=== PATIENT | female | born 1985 | race Caucasian/White ===

== ENCOUNTER 2017-05-16 15:51 | Emergency (ER) | payer MEDICAID, SELFPAY ==
[2017-05-16 15:52] VITALS: BP 139/96; PULSE 124; RESP 18; TEMP 36.8; O2SAT 98; BMI 26.8
--- NOTE | 2017-05-16 16:05 | EKG12_ITS ---
Test Reason : CHEST PAIN Blood Pressure : / mmHG Vent. Rate : 118 BPM Atrial Rate : 118 BPM P-R Int : 128 ms QRS Dur : 076 ms QT Int : 322 ms P-R-T Axes : 011 025 028 degrees QTc Int : 451 ms Sinus tachycardia Otherwise normal ECG Confirmed by ELEANOR MINOR, MEÑO ([id number]), subeditor WAYLON ROSAS ([id number]) on 05/18/2017 2:19:21 PM Referred By: Confirmed By:MEÑO WESBTER MD
[2017-05-16 16:26] LABS: Bacteria 0 SEEN /hpf (None Seen); Mucous, Urine 0 SEEN /hpf (<or=2+); Red Blood Cells-Urine 0 SEEN /hpf (0-5)
[2017-05-16 16:28] VITALS: O2SAT 97
--- NOTE | 2017-05-16 16:32 | CT_ITS ---
STUDY: CT ABDOMEN AND PELVIS WITHOUT CONTRAST REASON FOR EXAM: Female, 32 years old. Left flank pain. RADIATION DOSAGE (If Supplied By Facility): CTDIvol = ( 12.38 ) mGy, DLP = ( 557.57 ) mGycm TECHNIQUE: Transaxial images were obtained from the dome of the diaphragm to the symphysis pubis without oral contrast, and without intravenous contrast. Sagittal and coronal images were reconstructed. Individualized dose optimization techniques were used for this CT. COMPARISON: May 05, 2016. FINDINGS: The visualized lung bases are unremarkable. The visualized portions of the heart are within normal limits. Normal liver. There are surgical clips in the gallbladder fossa consistent with a prior cholecystectomy. There is mild splenomegaly. Normal pancreas. Normal bilateral adrenal glands. Normal right kidney. There is 0.3 cm stone at the lower pole of the left kidney. There is no hydronephrosis. Normal visualized stomach. Normal small intestine. Normal colon. The appendix is visualized and appears normal. Normal abdominal aorta. Normal inferior vena cava. Normal retroperitoneum. Normal urinary bladder. Normal visualized uterus. Adnexal follicles. Tubal ligation clips. There is no free fluid in the abdomen or pelvis. Normal abdominal wall. Normal osseous structures. CT/Abdomen/Pelvis without Cont IMPRESSION: Left renal stone. No hydronephrosis. Splenomegaly. Electronically Signed: Alfonso Gupta MD at 17:37 EST , Service support ,
[2017-05-16 16:35] LABS: Color, Urine Yellow (Yellow); Glucose, Dipstick Normal (Normal); Ketone-Dipstick Negative (Negative); Leukocyte Esterase-Dipstick 25 /ul (Negative); Nitrite-Dipstick Negative (Negative); Occult Blood-Urine Negative /ul (Negative); Protein-Dipstick Negative (Negative); Specific Gravity, Urine 1.015 (1.002-1.030); Urine Bilirubin Dipstick Negative (Negative); Urine Clarity Sl. Cloudy (Clear); Urine Urobilinogen Normal (Normal); Urine pH 6.5 (5.0 - 8.0)
[2017-05-16 16:36] LABS: Absolute Lymphocyte Count 0.96 X10^3/ul (0.83-4.51); Absolute Neutrophil Count 2.6 X10^3/uL (2.0-7.7); Basophil# 0.02 X10^3/uL; Basophil% 0.5 % (0-1); Eosinophil# 0.02 X10^3/uL; Eosinophils% 0.5 % (0-5); Hematocrit 39.8 % (37-47); Hemoglobin 13.2 g/dl (12.0-15.0); Lymphocyte # 0.96 X10^3/ul (4.0); Mean Corp Hgb Conc 33.2 g/gl (32-36); Mean Corpuscular Hgb 28.6 pg (27.0-32.0); Mean Corpuscular Volume 86.1 fL (81-99); Mean Platelet Vol. 10.3 fl (6.2-12.0); Monocyte# 0.73 X10^3/uL; Monocyte% 16.7 % (0-10); Neutrophil # 2.62 X10^3/uL (2.7-7.7); Neutrophil % 60.1 % (47-70); Platelet Count 212 K/mm3 (150-450); RBC Distribution Width CV 14.7 % (11.6-14.6); RBC Distribution Width SD 45.4 fl (35.1-43.9); Red Blood Count 4.62 M/mm3 (4.2-5.4); White Blood Count 4.4 K/mm3 (4.4-11.0)
[2017-05-16 16:37] LABS: POSITIVE COUNT NO; POSITIVE DIFFERENTIAL NO; POSITIVE MORPHOLOGY NO
[2017-05-16] MEDS: Ketorolac 30 MG/ML Syringe IV (16:41)
[2017-05-16] MEDS: 0.9% Normal Saline 1,000 ML 150 ML IV (16:41)
[2017-05-16 16:43] LABS: Squamous Epithelial Cells - UA 0-5 SEEN /hpf (5-10); White Blood Cells 5-10 SEEN /hpf (0-5)
[2017-05-16 16:50] LABS: Anion Gap 9 (5-15); BUN 5 mg/dL (7-18); BUN/Creat Ratio 6.4 RATIO (10-20); Calcium,Total 8.3 mg/dL (8.5-10.1); Chloride 107 mmol/L (98-107); Creatinine, Serum 0.78 mg/dL (0.55-1.02); EST Glomerular Filtration Rate 90 mL/min (>60); Est Glom Filt Rate - Afr Amer 109 mL/min (>60); Estimated Creatinine Clearance 88.59 ml/min; Glucose 102 mg/dL (74-106); Potassium 3.6 mmol/L (3.5-5.1); Sodium Level 142 mmol/L (136-145)
--- NOTE | 2017-05-16 17:03 | RAD_ITS ---
STUDY: X-RAY CHEST REASON FOR EXAM: Female, 32 years old. Cough. Fever. TECHNIQUE: Single AP portable view of the chest. COMPARISON: None. FINDINGS: There are monitoring devices. The lungs are clear and expanded. There is no demonstrated pleural abnormality. Normal size heart. Normal mediastinum and emre. Normal visualized pulmonary arteries. Normal visualized aortic arch and descending thoracic aorta. Normal visualized thoracic spine. Normal visualized ribs, clavicles, and shoulders. There is no demonstrated abnormality of the visualized soft tissue structures of the upper abdomen. RAD/Chest 1 View (Portable) IMPRESSION: Normal x-ray examination of the chest. Electronically Signed: Alfonso Gupta MD at 17:32 EST , Service support ,
--- NOTE | 2017-05-16 17:49 | ED.VISSUMM ---
- ER Visit Summary Date of Service: 05/16/17 Chief Complaint: [Flank pain] History of Present Illness: The patient is a 32 F [presents to the emergency department chief complaint of left flank pain that started 3 days ago. Patient denies dysuria or frequency. Patient states that she had a fever up to 102.1 yesterday. Patient also states that she feels like she might have bronchitis that she has had a cough that at times is been productive of some yellow sputum. Patient also describes some chest heaviness and pain in her chest with cough. Patient has a history of ulcerative colitis. Patient has had kidney stones in the past. Patient does not think that she is as she has had a tubal ligation] Physical Examination: [HEENT-PERRLA, EOMI. Cranial nerves II through XII grossly intact. TMs clear. Mucous membranes moist. No adenopathy. Cardiovascular-regular rate and rhythm without murmur or ectopy Lungs-clear to auscultation, chest wall stable without crepitus or subcu emphysema Abdomen-normoactive bowel sounds, has some mild tenderness over left lower quadrant with some guarding. Patient has CVA tenderness on the left. There is no rebound, rigidity, or perineal signs. Extremities-intact ?4, normal range of motion, normal pulses, atraumatic] Test Results: [CBC with differential obtained showed a white blood cell count 4.4, hemoglobin 13, hematocrit 40, platelets 212. Chemistries were unremarkable. Urinalysis showed 25 leukocyte esterase, 5-10 WBCs, 0 bacteria. Troponin was less than 0.02. EKG ordered by nursing staff on arrival showed a sinus tachycardia with rate of 118 bpm with no acute ST segment changes. Chest x-ray was normal. CT flank showed a left renal stone however no hydronephrosis patient also has some mild splenomegaly. Patient in normal colon.] Emergency Department Course and Treatment: [She was medicated with Toradol in the emergency department] Treatment Plan: [Patient advised to use Tylenol for discomfort and use some heat to the area. Patient also advised that she likely has a viral upper respiratory infection.] Disposition: [Discharged home in stable condition] Impression: [Left flank pain-etiology uncertain Viral URI] This note was generated with [employer] dictation software. It may contain incorrect words, spelling, and punctuation that were not noted in review of the chart prior to signing ED Disposition - Plan for ED Patient: Chief Complaint: Chest Pain Referrals: Ravindra Bean MD [Primary Care Provider] -
--- NOTE | 2017-05-16 17:53 | ED.DEP ---
ED Disposition - Plan for ED Patient: Chief Complaint: Chest Pain Instructions: ED Flank Pain Uncertain Cause, ED URI Viral Referrals: Ravindra Bean MD [Primary Care Provider] - 5-7 Days
[2017-05-16 18:02] VITALS: BP 122/84; PULSE 107; RESP 14; O2SAT 97
[2017-05-16 18:14] VITALS: BP 122/84; PULSE 107; RESP 17; O2SAT 97
--- NOTE | 2017-05-16 18:16 | ED.RN ---
REVIEWED D/C INSTRUCTIONS, FOLLOW UP CARE, AND S/S THAT WOULD WARRANT A RETURN TO THE ED WITH PT. PT VERBALIZED AN UNDERSTANDING AND DENIES FURTHER QUESTIONS FOR THIS RN. PT SKIN P/W/D, RESP EVEN AND UNLABORED, PT A&O X 3, NO DISTRESS NOTED. PT AMBULATED OUT OF ED, GAIT STEADY.
== END 2017-05-16 18:17 | disposition home or self-care (01) ==
PROVIDERS: Emergency Provider Emergency Medicine; Family Provider Family Medicine; PCP Family Medicine
DX: R10.9 Unspecified abdominal pain (principal); J06.9 Acute upper respiratory infection, unspecified; N20.0 Calculus of kidney; R16.1 Splenomegaly, not elsewhere classified; K51.90 Ulcerative colitis, unspecified, without complications; Z87.442 Personal history of urinary calculi; Z72.0 Tobacco use; Z79.899 Other long term (current) drug therapy
CPT/HCPCS: 71045; 74176; 80048; 81001; 84484; 85025; 93005; 96361; 96374; 99284; J7030; A4216

== ENCOUNTER 2017-07-12 19:40 | Emergency (ER) | payer MEDICAID, SELFPAY ==
[2017-07-12 19:41] VITALS: BP 156/95; PULSE 122; RESP 20; TEMP 36.1; O2SAT 95; BMI 26.2
--- NOTE | 2017-07-12 20:03 | ED.VISSUMM ---
- ER Visit Summary Date of Service: 07/12/17 Chief Complaint: [] Abdominal pain History of Present Illness: The patient is a 32 F [] patient reports a history of ulcerative colitis she has had abdominal pain for many months she has had prior evaluations by her physicians including colonoscopies she has been on sulfasalazine, prednisone and other medications she has had recent CAT scans that were unremarkable, she was told that she might require surgery to simply remove the part of the colon that continues to be inflamed despite these therapies she saw a surgeon recently who told her that would be an option they would be happy to pursue should she feel that is appropriate, she was also told she might require immune therapy with Humira, and so the issue now is whether she should start immunotherapy or have the surgery. She indicates the pain has persisted she is able to eat and drink her bowel habits have been diarrhea no blood no fever no cough, she presents because of the persistence of the pain and failure of outpatient therapy as above Physical Examination: [] No distress her vital signs are within normal range she complains of pain to the left side abdomen which is the usual location of her pain head neck chest unremarkable lungs clear heart tones normal the abdomen is soft she subjectively complains of vague pain to the left side abdomen that has no focal region there is no rebound guarding organomegaly I do not feel any fullness, she assures me she is not having any blood per rectum, her upper lower extremities are unremarkable her neurologic exam unremarkable Test Results: [] Emergency Department Course and Treatment: [] On conversation with her we reviewed her prior studies including a recent CAT scan in May that showed nothing acute all of the other prior workup she mentioned, we will start IV fluids pain management screening labs. she simply wants some relief of the pain, she is also scheduled to follow-up with her hollow ware maker Dr. Holloway soon for further management options White count is 17.6, because of that elevated white count which is a change from her baseline she was sent for repeat CT which showed nothing acute, she did recently complete prednisone and that is likely explaining the elevated white count, and the rest of her labs are unremarkable On reevaluation she continues to complain of some pain I explained her she received the maximum dose of morphine 8 mg she will receive additional 4 mg here, there is some notation in the medical record of history of prescription narcotic use or abuse syndrome, and as this is a chronic problem that she has had for many months, her physicians managing her condition do not have her on narcotics I have explained to visually nothing more that can be done from the emergency department she should contact us physicians for further management options and return for change in symptoms she understands Treatment Plan: [] Disposition: [] Home stable Impression: [] Acute recurrent abdominal pain reported history of ulcerative colitis This note was generated with [employer] dictation software. It may contain incorrect words, spelling, and punctuation that were not noted in review of the chart prior to signing ED Disposition - Plan for ED Patient: Chief Complaint: Abd Pain Referrals: Ravindra Bean MD [Primary Care Provider] -
--- NOTE | 2017-07-12 20:06 | ED.DCSUM_ITS ---
- ER Visit Summary Date of Service: 07/12/17 Chief Complaint: [] Abdominal pain History of Present Illness: The patient is a 32 F [] patient reports a history of ulcerative colitis she has had abdominal pain for many months she has had prior evaluations by her physicians including colonoscopies she has been on sulfasalazine, prednisone and other medications she has had recent CAT scans that were unremarkable, she was told that she might require surgery to simply remove the part of the colon that continues to be inflamed despite these therapies she saw a surgeon recently who told her that would be an option they would be happy to pursue should she feel that is appropriate, she was also told she might require immune therapy with Humira, and so the issue now is whether she should start immunotherapy or have the surgery. She indicates the pain has persisted she is able to eat and drink her bowel habits have been diarrhea no blood no fever no cough, she presents because of the persistence of the pain and failure of outpatient therapy as above Physical Examination: [] No distress her vital signs are within normal range she complains of pain to the left side abdomen which is the usual location of her pain head neck chest unremarkable lungs clear heart tones normal the abdomen is soft she subjectively complains of vague pain to the left side abdomen that has no focal region there is no rebound guarding organomegaly I do not feel any fullness, she assures me she is not having any blood per rectum, her upper lower extremities are unremarkable her neurologic exam unremarkable Test Results: [] Emergency Department Course and Treatment: [] On conversation with her we reviewed her prior studies including a recent CAT scan in May that showed nothing acute all of the other prior workup she mentioned, we will start IV fluids pain management screening labs. she simply wants some relief of the pain , she is also scheduled to follow-up with her goat herder Dr. Holloway soon for further management options White count is 17.6, because of that elevated white count which is a change from her baseline she was sent for repeat CT which showed nothing acute, she did recently complete prednisone and that is likely explaining the elevated white count, and the rest of her labs are unremarkable On reevaluation she continues to complain of some pain I explained her she received the maximum dose of morphine 8 mg she will receive additional 4 mg here , there is some notation in the medical record of history of prescription narcotic use or abuse syndrome, and as this is a chronic problem that she has had for many months, her physicians managing her condition do not have her on narcotics I have explained to visually nothing more that can be done from the emergency department she should contact us physicians for further management options and return for change in symptoms she understands Treatment Plan: [] Disposition: [] Home stable Impression: [] Acute recurrent abdominal pain reported history of ulcerative colitis This note was generated with [employer] dictation software. It may contain incorrect words, spelling, and punctuation that were not noted in review of the chart prior to signing ED Disposition - Plan for ED Patient: Chief Complaint: Abd Pain Referrals: Ravindra Bean MD [Primary Care Provider] -
[2017-07-12] MEDS: Ondansetron 4 MG/2 ML Vial IV (20:11)
[2017-07-12] MEDS: morphine 8 MG/ML Syringe IV (20:11)
[2017-07-12] MEDS: 0.9% Normal Saline 1,000 ML 1000 ML IV (20:11)
[2017-07-12 20:23] LABS: Bacteria 0 SEEN /hpf (None Seen); Mucous, Urine 0 SEEN /hpf (<or=2+); Red Blood Cells-Urine 0 SEEN /hpf (0-5); White Blood Cells 0 SEEN /hpf (0-5)
[2017-07-12 20:31] LABS: Absolute Lymphocyte Count 1.35 X10^3/ul (0.83-4.51); Absolute Neutrophil Count 15.3 X10^3/uL (2.0-7.7); Basophil# 0.01 X10^3/uL; Basophil% 0.1 % (0-1); Hematocrit 42.3 % (37-47); Hemoglobin 14.2 g/dl (12.0-15.0); Lymphocyte # 1.35 X10^3/ul (4.0); Lymphocyte % 7.8 % (19-41); Mean Corp Hgb Conc 33.6 g/gl (32-36); Mean Corpuscular Hgb 29.2 pg (27.0-32.0); Mean Platelet Vol. 10.4 fl (6.2-12.0); Monocyte# 0.61 X10^3/uL; Monocyte% 3.5 % (0-10); Neutrophil # 15.32 X10^3/uL (2.7-7.7); Neutrophil % 88.3 % (47-70); Platelet Count 340 K/mm3 (150-450); RBC Distribution Width CV 13.7 % (11.6-14.6); RBC Distribution Width SD 43.4 fl (35.1-43.9); Red Blood Count 4.86 M/mm3 (4.2-5.4); White Blood Count 17.4 K/mm3 (4.4-11.0)
[2017-07-12 20:32] LABS: POSITIVE COUNT NO; POSITIVE DIFFERENTIAL NO; POSITIVE MORPHOLOGY NO
[2017-07-12 20:33] VITALS: BP 141/92; PULSE 100; RESP 18; O2SAT 97
[2017-07-12 20:33] LABS: Color, Urine Yellow (Yellow); Glucose, Dipstick Normal (Normal); Ketone-Dipstick Negative (Negative); Leukocyte Esterase-Dipstick Negative /ul (Negative); Nitrite-Dipstick Negative (Negative); Occult Blood-Urine Negative /ul (Negative); Protein-Dipstick Negative (Negative); Specific Gravity, Urine 1.015 (1.002-1.030); Urine Bilirubin Dipstick Negative (Negative); Urine Clarity Clear (Clear); Urine Urobilinogen Normal (Normal)
[2017-07-12 20:44] LABS: Squamous Epithelial Cells - UA 0-5 SEEN /hpf (5-10)
[2017-07-12 20:50] LABS: AST(SGOT) 9 U/L (15-37); Alanine Aminotransfer ALT/SGPT 18 U/L (13-56); Alkaline Phosphatase 59 U/L (45-117); Anion Gap 9 (5-15); BUN 8 mg/dL (7-18); BUN/Creat Ratio 9.6 RATIO (10-20); Bilirubin, Direct 0.07 mg/dL (0.00-0.30); Calcium,Total 8.8 mg/dL (8.5-10.1); Chloride 107 mmol/L (98-107); Creatinine, Serum 0.84 mg/dL (0.55-1.02); EST Glomerular Filtration Rate 83 mL/min (>60); Est Glom Filt Rate - Afr Amer 101 mL/min (>60); Globulin 3.5 g/dL (2.2-4.2); Glucose 140 mg/dL (74-106); Lipase 115 U/L (73-393); Potassium 3.9 mmol/L (3.5-5.1); Protein, Total 7.5 g/dL (6.4-8.2); Sodium Level 139 mmol/L (136-145)
--- NOTE | 2017-07-12 20:51 | CT_ITS ---
STUDY: CT ABDOMEN AND PELVIS WITHOUT CONTRAST REASON FOR EXAM: Female, 32 years old. Abdominal pain. Elevated white blood count. Ulcerative colitis. RADIATION DOSAGE (If Supplied By Facility): CTDIvol = ( 6.83 ) mGy, DLP = ( 334.65 ) mGycm TECHNIQUE: Transaxial images were obtained from the dome of the diaphragm to the symphysis pubis without oral contrast, and without intravenous contrast. Sagittal and coronal images were reconstructed. Individualized dose optimization techniques were used for this CT. COMPARISON: Including May 16, 2017 and May 05, 2016 FINDINGS: The visualized lung bases are unremarkable. The visualized portions of the heart are within normal limits. Normal liver. There are surgical clips in the gallbladder fossa consistent with a prior cholecystectomy. Normal spleen. Normal pancreas. Normal bilateral adrenal glands. Normal right kidney. There is a 0.2 cm stone at the lower pole of the left kidney. No hydronephrosis. Normal visualized stomach. Normal small intestine. Normal colon. The appendix is visualized and appears normal. Normal abdominal aorta. Normal inferior vena cava. Normal retroperitoneum. Normal urinary bladder. Normal visualized uterus. There are tubal ligation clips. Normal abdominal wall. Normal osseous structures. CT/Abdomen/Pelvis without Cont IMPRESSION: Left renal stone. No hydronephrosis. No dilated loops of bowel. Electronically Signed: Alfonso Gupta MD at 21:49 EDT , Service support ,
[2017-07-12 20:56] LABS: Pregnancy, Serum, hCG Quali. NEGATIVE Negative (0-9 Nonpreg)
[2017-07-12 21:57] VITALS: BP 142/98; PULSE 93; RESP 16; O2SAT 96
--- NOTE | 2017-07-12 22:17 | ED.DEP ---
ED Disposition - Plan for ED Patient: Chief Complaint: Abd Pain Instructions: ED Flank Pain Uncertain Cause Referrals: Ravindra Bean MD [Primary Care Provider] -
--- NOTE | 2017-07-12 22:21 | ED.DEP ---
ED Disposition - Plan for ED Patient: Chief Complaint: Abd Pain Instructions: ED Flank Pain Uncertain Cause Prescriptions: Ondansetron [Zofran Odt] 4 mg PO Q8H PRN PRN #10 tab PRN Reason: Nausea Referrals: Ravindra Bean MD [Primary Care Provider] -
[2017-07-12] MEDS: morphine 8 MG/ML Syringe 6 MG IV (22:26)
[2017-07-12 22:48] VITALS: BP 157/93; PULSE 89; RESP 16; O2SAT 95
--- NOTE | 2017-07-12 22:50 | ED.RN ---
REVIEWED D/C INSTRUCTIONS, FOLLOW UP CARE, PRESCRIPTION, AND S/S THAT WOULD WARRANT A RETURN TO THE ED WITH PT. PT VERBALIZED AN UNDERSTANDING AND DENIES FURTHER QUESTIONS FOR THIS RN. PT SKIN P/W/D, RESP EVEN AND UNLABORED, PT A&O X 3, NO DISTRESS NOTED. PT AMBULATED OUT OF ED, GAIT STEADY.
== END 2017-07-12 22:52 | disposition home or self-care (01) ==
PROVIDERS: Emergency Provider Emergency Medicine; Family Provider Family Medicine; PCP Family Medicine
DX: R10.9 Unspecified abdominal pain (principal); K51.50 Left sided colitis without complications; Z79.899 Other long term (current) drug therapy
CPT/HCPCS: 74176; 80048; 80076; 81001; 83690; 84703; 85025; 96361; 96374; 96375; 96376; 99283; J7030; A4216; J2405

== ENCOUNTER → 2017-09-12 11:33 | Outpatient (CLI) | payer MEDICAID, SELFPAY ==
--- NOTE | 2017-09-12 11:33 | DT_ITS ---
This patient was seen during an EMR downtime September 10, 2017 - September 17, 2017. This patient may have a combination of paper and electronic documentation or all paper documentation. All documentation is viewable within the e-chart portion of [facility] for each patient visit.
[2017-09-16 15:47] LABS: Thyroid Stim Hormone (TSH) 2.17 uIU/mL (0.358-3.74)
== END ==
PROVIDERS: Family Provider Family Medicine; PCP Family Medicine; Visit Provider Family Medicine
DX: R63.5 Abnormal weight gain (principal)
CPT/HCPCS: 36415; 84443

== ENCOUNTER → 2017-09-21 08:23 | Outpatient (CLI) | payer MEDICAID, SELFPAY ==
[2017-09-26 09:23] LABS: HPV APTIMA, High Risk Negative (Negative)
== END ==
PROVIDERS: Family Provider Family Medicine; PCP Family Medicine; Visit Provider Nurse Practitioner Women's Health
DX: Z12.4 Encounter for screening for malignant neoplasm of cervix (principal)
CPT/HCPCS: 88175; G0145

== ENCOUNTER 2017-09-22 11:26 | Emergency (ER) | payer MEDICAID, SELFPAY ==
[2017-09-22 11:26] VITALS: BP 148/93; PULSE 100; RESP 18; TEMP 37; O2SAT 96; BMI 26.7
[2017-09-22] MEDS: Morphine 4 MG/ML Syringe IV (11:52)
[2017-09-22] MEDS: Ondansetron 4 MG/2 ML Vial IV (11:52)
[2017-09-22 12:18] LABS: ALB/GLOB Ratio 1.2 RATIO (0.9-2.4); AST(SGOT) 10 U/L (15-37); Absolute Lymphocyte Count 1.92 X10^3/ul (0.83-4.51); Absolute Neutrophil Count 6.4 X10^3/uL (2.0-7.7); Alanine Aminotransfer ALT/SGPT 16 U/L (13-56); Albumin, Serum 4.1 g/dL (3.2-5.0); Alkaline Phosphatase 62 U/L (45-117); Anion Gap 6 (5-15); BUN 11 mg/dL (7-18); BUN/Creat Ratio 11.2 RATIO (10-20); Basophil# 0.05 X10^3/uL; Basophil% 0.5 % (0-1); Calcium,Total 8.9 mg/dL (8.5-10.1); Chloride 108 mmol/L (98-107); Creatinine, Serum 0.99 mg/dL (0.55-1.02); EST Glomerular Filtration Rate 69 mL/min (>60); Eosinophils% 4.3 % (0-5); Est Glom Filt Rate - Afr Amer 83 mL/min (>60); Estimated Creatinine Clearance 69.79 ml/min; Globulin 3.5 g/dL (2.2-4.2); Glucose 93 mg/dL (74-106); Hematocrit 39.3 % (37-47); Hemoglobin 13.6 g/dl (12.0-15.0); Lipase 76 U/L (73-393); Lymphocyte # 1.92 X10^3/ul (4.0); Lymphocyte % 20.8 % (19-41); Mean Corp Hgb Conc 34.6 g/gl (32-36); Mean Corpuscular Hgb 29.5 pg (27.0-32.0); Mean Corpuscular Volume 85.2 fL (81-99); Mean Platelet Vol. 10.8 fl (6.2-12.0); Monocyte# 0.49 X10^3/uL; Monocyte% 5.3 % (0-10); Neutrophil # 6.38 X10^3/uL (2.7-7.7); Platelet Count 332 K/mm3 (150-450); Potassium 3.6 mmol/L (3.5-5.1); Protein, Total 7.6 g/dL (6.4-8.2); RBC Distribution Width CV 12.5 % (11.6-14.6); Red Blood Count 4.61 M/mm3 (4.2-5.4); Sodium Level 137 mmol/L (136-145); White Blood Count 9.3 K/mm3 (4.4-11.0)
[2017-09-22 12:20] LABS: POSITIVE COUNT NO; POSITIVE DIFFERENTIAL NO; POSITIVE MORPHOLOGY NO
--- NOTE | 2017-09-22 12:38 | ED.DCSUM_ITS ---
- ER Visit Summary Date of Service: 09/22/17 Chief Complaint: Abdominal pain History of Present Illness: The patient is a 32 F who presents with abdominal pain. Been ongoing for the last 3 days. She describes sharp pains in her epigastric and left lower quadrant. She has had associated nausea with vomiting. She also admits to diarrhea. She has had no urinary symptoms. She was started on amoxicillin 3 days ago for sinus infection. She has a history of ulcerative colitis and is on sulfasalazine. She tried Tylenol and Excedrin without any relief. Physical Examination: Vital signs reviewed. HEENT exam unremarkable. Heart is regular rate and rhythm without murmurs. Lungs are clear to auscultation. Abdomen is soft diffuse tenderness to palpation. Extremities reveal no edema. Skin exam normal. Neurologic exam normal. Test Results: Labs are normal except for chloride of 108 Emergency Department Course and Treatment: Patient received morphine and Zofran. Her pain is improved. I will give her naproxen, Zofran ODT and put her on a course of steroids at home for a flare of ulcerative colitis. She will need to follow-up with her PCP Treatment Plan: [] Disposition: Discharge Impression: Dominant pain, ulcerative colitis flare This note was generated with [employer] dictation software. It may contain incorrect words, spelling, and punctuation that were not noted in review of the chart prior to signing ED Disposition - Plan for ED Patient: Chief Complaint: Abd Pain Referrals: Ravindra Bean MD [Primary Care Provider] -
--- NOTE | 2017-09-22 12:38 | ED.DEP ---
ED Disposition - Plan for ED Patient: Disposition: Home or Assisted Living Chief Complaint: Abd Pain Diagnosis: Ulcerative colitis Prescriptions: Ondansetron [Zofran Odt] 4 mg PO Q8H PRN PRN #10 tab PRN Reason: Nausea Naproxen [Naprosyn] 500 mg PO BID PRN #20 tab Prednisone [Deltasone] 40 mg PO DAILY #10 tab Referrals: Ravindra Bean MD [Primary Care Provider] -
[2017-09-22 12:44] VITALS: BP 130/81; PULSE 76; RESP 16
== END 2017-09-22 12:44 | disposition home or self-care (01) ==
PROVIDERS: Emergency Provider Emergency Medicine; Family Provider Family Medicine; PCP Family Medicine
DX: K51.90 Ulcerative colitis, unspecified, without complications (principal); R10.84 Generalized abdominal pain; J32.9 Chronic sinusitis, unspecified; Z79.2 Long term (current) use of antibiotics; Z79.899 Other long term (current) drug therapy; Z72.0 Tobacco use
CPT/HCPCS: 80053; 83690; 85025; 96374; 96375; 99283; A4216; J2405

== ENCOUNTER 2017-11-04 13:24 | Emergency (ER) | payer MEDICAID, SELFPAY ==
[2017-11-04 13:24] VITALS: BP 147/97; PULSE 104; RESP 18; TEMP 36.7; O2SAT 99; BMI 26.6
--- NOTE | 2017-11-04 13:52 | ED.VISSUMM ---
- ER Visit Summary Date of Service: 11/04/17 Chief Complaint: Abdominal pain nausea vomiting diarrhea History of Present Illness: The patient is a 32 F with history of ulcerative colitis presents with the above complaints. This started 3 days ago. She is not on steroids or immunomodulating agents. She has an appointment with her GI doctor in 4 days. No fever chills no dysuria no flank pain. Most of her pain is in the left lower quadrant. Physical Examination: Not appear in acute distress. Moist mucous membranes, no obvious facial deformity No C-spine tenderness supple neck. Regular rate and rhythm without any obvious murmurs Clear lungs bilaterally speaking in full sentences without any obvious respiratory distress Abdomen soft with diffuse tenderness but mostly in the left lower quadrant, no guarding or rebound Moves all extremities without any difficulty or pain. Skin does not show any obvious rashes or lesions, no trauma. Alert oriented ?3 with no gross focal deficit Emergency Department Course and Treatment: Patient had an unremarkable workup. I will treat her with steroids, she has been on these in the past. She has an appointment with her GI doctor in 5 days. She is told to continue this. If she worsen she needs to return and she understands this. Impression: Ulcerative colitis flare This note was generated with [employer] dictation software. It may contain incorrect words, spelling, and punctuation that were not noted in review of the chart prior to signing ED Disposition - Plan for ED Patient: Disposition: Home or Assisted Living Chief Complaint: Abd Pain Instructions: ED Colitis Ulcerative Prescriptions: Prednisone 60 mg PO DAILY #12 tab Referrals: Ravindra Bean MD [Primary Care Provider] - 2 Days
[2017-11-04 13:53] VITALS: BP 144/93; PULSE 90; RESP 16; O2SAT 100
[2017-11-04] MEDS: Ondansetron 4 MG/2 ML Vial IV (13:59)
[2017-11-04] MEDS: Morphine 4 MG/ML Syringe IV (13:59)
[2017-11-04] MEDS: 0.9% Normal Saline 1,000 ML 1000 ML IV (13:59)
[2017-11-04 14:17] LABS: Absolute Lymphocyte Count 2.15 X10^3/ul (0.83-4.51); Basophil# 0.03 X10^3/uL; Basophil% 0.4 % (0-1); Eosinophil# 0.36 X10^3/uL; Eosinophils% 4.6 % (0-5); Hematocrit 40.2 % (37-47); Hemoglobin 13.5 g/dl (12.0-15.0); Lymphocyte # 2.15 X10^3/ul (4.0); Lymphocyte % 27.2 % (19-41); Mean Corp Hgb Conc 33.6 g/gl (32-36); Mean Corpuscular Volume 86.5 fL (81-99); Mean Platelet Vol. 10.7 fl (6.2-12.0); Monocyte# 0.41 X10^3/uL; Monocyte% 5.2 % (0-10); Neutrophil # 4.95 X10^3/uL (2.7-7.7); Neutrophil % 62.5 % (47-70); Platelet Count 276 K/mm3 (150-450); RBC Distribution Width SD 40.8 fl (35.1-43.9); Red Blood Count 4.65 M/mm3 (4.2-5.4); White Blood Count 7.9 K/mm3 (4.4-11.0)
[2017-11-04 14:18] LABS: POSITIVE COUNT NO; POSITIVE DIFFERENTIAL NO; POSITIVE MORPHOLOGY NO
[2017-11-04 14:31] LABS: ALB/GLOB Ratio 1.1 RATIO (0.9-2.4); AST(SGOT) 23 U/L (15-37); Alanine Aminotransfer ALT/SGPT 17 U/L (13-56); Albumin, Serum 3.9 g/dL (3.2-5.0); Alkaline Phosphatase 56 U/L (45-117); Anion Gap 6 (5-15); BUN 9 mg/dL (7-18); BUN/Creat Ratio 9.7 RATIO (10-20); Calcium,Total 9.2 mg/dL (8.5-10.1); Chloride 109 mmol/L (98-107); Creatinine, Serum 0.93 mg/dL (0.55-1.02); EST Glomerular Filtration Rate 74 mL/min (>60); Est Glom Filt Rate - Afr Amer 89 mL/min (>60); Globulin 3.7 g/dL (2.2-4.2); Glucose 90 mg/dL (74-106); Potassium 4.5 mmol/L (3.5-5.1); Protein, Total 7.6 g/dL (6.4-8.2); Sodium Level 139 mmol/L (136-145)
[2017-11-04] MEDS: predniSONE 20 MG Tablet 60 MG PO (15:25)
[2017-11-04 15:27] VITALS: BP 146/92; PULSE 87; RESP 16; O2SAT 100
== END 2017-11-04 15:30 | disposition home or self-care (01) ==
PROVIDERS: Emergency Provider Emergency Medicine; Family Provider Family Medicine; PCP Family Medicine
DX: K51.50 Left sided colitis without complications (principal); Z72.0 Tobacco use; Z79.2 Long term (current) use of antibiotics; Z79.899 Other long term (current) drug therapy
CPT/HCPCS: 80053; 85025; 96361; 96374; 96375; 99284; J7030; A4216; J2405

== ENCOUNTER 2018-09-10 13:06 | Emergency (ER) | payer MEDICAID, SELFPAY ==
[2018-04-11 16:56] VITALS: BMI 26.8
[2018-09-10 13:07] VITALS: BP 139/85; PULSE 104; RESP 16; TEMP 36.7; O2SAT 95; BMI 21.9
--- NOTE | 2018-09-10 13:33 | ED.RN ---
PT DENIES WANTING TO END HER LIFE OR TO COMMIT SUICIDE, PT REPORTED THE MENTAL PAIN IS TOO MUCH PT WANTS TO RELEASE THE MENTAL ANGUISH BY CUTTING.
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
[2018-09-10 14:08] LABS: Absolute Lymphocyte Count 1.99 X10^3/ul (0.83-4.51); Absolute Neutrophil Count 5.6 X10^3/uL (2.0-7.7); Basophil# 0.02 X10^3/uL; Basophil% 0.2 % (0-1); Eosinophil# 0.05 X10^3/uL; Eosinophils% 0.6 % (0-5); Hematocrit 36.5 % (37-47); Hemoglobin 12.7 g/dl (12.0-15.0); Lymphocyte # 1.99 X10^3/ul (4.0); Lymphocyte % 24.8 % (19-41); Mean Corp Hgb Conc 34.8 g/gl (32-36); Mean Corpuscular Volume 77.5 fL (81-99); Mean Platelet Vol. 9.8 fl (6.2-12.0); Monocyte# 0.36 X10^3/uL; Monocyte% 4.5 % (0-10); Neutrophil # 5.58 X10^3/uL (2.7-7.7); Neutrophil % 69.8 % (47-70); Platelet Count 388 K/mm3 (150-450); RBC Distribution Width CV 14.3 % (11.6-14.6); RBC Distribution Width SD 40.5 fl (35.1-43.9); Red Blood Count 4.71 M/mm3 (4.2-5.4)
[2018-09-10 14:09] LABS: POSITIVE COUNT NO; POSITIVE DIFFERENTIAL NO; POSITIVE MORPHOLOGY NO
[2018-09-10 14:17] LABS: Anion Gap 8 (5-15); BUN 8 mg/dL (7-18); BUN/Creat Ratio 8.8 RATIO (10-20); Calcium,Total 8.9 mg/dL (8.5-10.1); Chloride 106 mmol/L (98-107); Creatinine, Serum 0.91 mg/dL (0.55-1.02); EST Glomerular Filtration Rate 75 mL/min (>60); Est Glom Filt Rate - Afr Amer 91 mL/min (>60); Estimated Creatinine Clearance 75.22 ml/min; Glucose 106 mg/dL (74-106); Potassium 3.5 mmol/L (3.5-5.1); Sodium Level 139 mmol/L (136-145)
[2018-09-10 14:37] LABS: Internal QC Validated? YES +Cl - CLEAR BKGD; Pregnancy, Serum, hCG Quali. NEGATIVE Negative
[2018-09-10 14:42] LABS: Alcohol, Blood (Medical)-Serum < 3.0 mg/dL
[2018-09-10 14:47] LABS: Amphetamine Urine VISTA POSITIVE (<1000 ng/mL); Barbiturate Urine VISTA NEGATIVE (< 200 ng/mL); Benzodiazepine Urine VISTA NEGATIVE (< 200 ng/mL); Cocaine Urine VISTA NEGATIVE (< 300 ng/mL); Ecstacy Urine VISTA POSITIVE (< 500 ng/mL); Methadone Urine VISTA NEGATIVE (< 300 ng/mL); PCP Urine VISTA NEGATIVE (< 25 ng/mL); THC Urine VISTA NEGATIVE (< 50 ng/mL); Vista UDS pH Range 6
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
--- NOTE | 2018-09-10 16:18 | ED.DEP ---
ED Disposition - Plan for ED Patient: Instructions: ED Contract, No Harm, ED Depression, ED Laceration Small Superf No Sutr Referrals: Care Physician,No Primary [Primary Care Provider] - Ravindra Bean MD [STAFF PHYSICIAN] - 5-7 Days
[2018-09-10 17:21] VITALS: BP 137/81; PULSE 78; RESP 19; O2SAT 99
== END 2018-09-10 17:29 | disposition home or self-care (01) ==
LOC: ED 14:36
PROVIDERS: Emergency Provider Emergency Medicine
DX: S41.012A Laceration without foreign body of left shoulder, initial encounter (principal); S41.011A Laceration without foreign body of right shoulder, initial encounter; S71.112A Laceration without foreign body, left thigh, initial encounter; S71.111A Laceration without foreign body, right thigh, initial encounter; F32.9 Major depressive disorder, single episode, unspecified; Z72.0 Tobacco use; X78.8XXA Intentional self-harm by other sharp object, initial encounter; Y93.89 Activity, other specified; Y92.002 Bathroom of unspecified non-institutional (private) residence as the place of occurrence of the external cause; Y99.8 Other external cause status
CPT/HCPCS: 80048; 80307; 80320; 84703; 85025; 99283; G0480

== ENCOUNTER 2018-09-30 23:52 | Emergency (ER) | payer MEDICAID, SELFPAY ==
[2018-09-30 23:53] VITALS: BP 144/97; PULSE 104; RESP 19; TEMP 36.7; O2SAT 97; BMI 23.6
--- NOTE | 2018-10-01 00:41 | ED.DCSUM_ITS ---
History of Present Illness Chief Complaint: Mental Health Informant: Patient, Significant Other Narrative: Patient stated that she would like to go home. She stated that she has had difficulty with depression in the past. She was seen 3 weeks ago. She does do superficial self cutting and at that time she had done some superficial self cutting. She was discharged home to follow-up with the counseling center for which she is done. She has not cut herself since. She stated she is having a lot of stress at home. Her significant other stated that she is been having auditory hallucinations. Patient denies this however. The patient initially told her significant other that the will be a better place without her. She stated she does not want to commit suicide however. She does not have any active suicidal thoughts now. She stated that he took her up to [facility] but she decided not to be seen and was brought here. She states she does not want to be here and would like to go home. She is adamant that she does not want to hurt her self. She would like to follow-up with counseling center tomorrow. - Past Medical History (1) Depression (emotion) Status: Acute (2) Ulcerative colitis Status: Acute Past Medical History - Allergies and Home Meds Allergies/Adverse Reactions: Allergies brompheniramine maleate [From Dimetapp (brompheniramine-PPA)] Allergy (Verified 09/30/18 23:59) Hives/hyperactivity escitalopram oxalate [From Lexapro] Allergy (Verified 09/30/18 23:59) Hives ketorolac tromethamine [From Toradol] Allergy (Verified 09/30/18 23:59) Hives/vomiting nalbuphine HCl [From Nubain] Allergy (Verified 09/30/18 23:59) Vomiting/hives paroxetine HCl [From Paxil] Allergy (Verified 09/30/18 23:59) Hives phenylpropanolamine HCl [From Dimetapp (brompheniramine-PPA)] Allergy (Verified 09/30/18 23:59) Hives SLEEP AIDS Allergy (Uncoded 09/30/18 23:59) Hives/hyperactivity/lockjaw Primary Care Physician: Care Physician,No Primary [Primary Care Provider] - Prior records reviewed: Yes Surgical History: no surgical history, - - History of tonsillectomy cholecystectomy Smoking Status: Current every day smoker Alcohol: None Drugs: None Review of Systems General: Denies: Chills, Fever, Sweats Eyes: Denies: Visual changes - bilaterally, Diplopia ENT: Denies: Rhinorrhea, Sore throat Cardiovascular: Denies: Chest pain, Palpitations Respiratory: Denies: Dyspnea, Cough, Dyspnea on exertion Gastrointestinal: Denies: Abdominal pain, Nausea, Vomiting, Diarrhea, Melena, Hematochezia Genitourinary: Denies: Dysuria, Hematuria, Frequency Musculoskeletal: Denies: Back pain, Extremity Pain Skin: Denies: Rash, Wounds Neurological: Denies: Headache, Weakness, Numbness Psych: Reports: Depression. Denies: Suicidal thoughts, Suicidal ideations Physical Exam Vital Signs/Narrative: Vital Signs Temp Pulse Resp BP Pulse Ox 09/30/18 23:53 98.1 F 104 H 19 H 144/97 H 97 General: Well nourished, Well developed, No Acute Distress Head: Normocephalic, Atraumatic Eyes: Perrl, EOMI ENT: Moist mucous membranes, No rhinorrhea Neck: Supple, Nontender Cardiovascular: Regular rate, Regular rhythm, No murmurs Respiratory: No distress, CTA bilaterally, Chest nontender Abdomen: Soft, Nontender, Nondistended, Normal bowel sounds Back: Nontender, Normal Inspection Extremities: Nontender, No edema Skin: Normal color, No rash Neurological: Alert, Oriented x3, Cranial nerves II-XII grossly intact, Normal Strength, Normal Sensation Psychological: Normal affect, Normal Mood Diagnostic/Tx/Re-eval - Medical Decision Making I discussed with the patient. She is not intoxicated. She appears to be making sense. She is not suicidal or homicidal. Her significant other would like her evaluated but she does not want evaluated. I stated that at this time I cannot force her to be evaluated. She is not having any thoughts of harming herself currently. She understands that she cannot tell him that the world would be a better place without him. She is can follow-up with the counseling center tomorrow. ED Disposition - Plan for ED Patient: Disposition: Home or Assisted Living Instructions: Depression Referrals: Care Physician,No Primary [Primary Care Provider] - Counseling,Center [GROUP OF PHYSICIANS] -
[2018-10-01 00:59] VITALS: BP 142/104; PULSE 116; RESP 18; O2SAT 97
== END 2018-10-01 01:01 | disposition home or self-care (01) ==
PROVIDERS: Emergency Provider Emergency Medicine
DX: F32.9 Major depressive disorder, single episode, unspecified (principal); F17.200 Nicotine dependence, unspecified, uncomplicated; Z79.899 Other long term (current) drug therapy
CPT/HCPCS: 99283

== ENCOUNTER 2021-02-08 17:58 | Emergency (ER) | payer MEDICAID, SELFPAY ==
[2021-02-08 17:58] VITALS: BP 143/79; PULSE 98; RESP 16; TEMP 36.6; O2SAT 100; BMI 23.0
--- NOTE | 2021-02-08 18:50 | EKG12_ITS ---
Test Reason : MENTAL HEALTH Blood Pressure : / mmHG Vent. Rate : 075 BPM Atrial Rate : 075 BPM P-R Int : 120 ms QRS Dur : 078 ms QT Int : 386 ms P-R-T Axes : 022 044 043 degrees QTc Int : 431 ms Normal sinus rhythm Normal ECG Confirmed by ELEANOR MINOR, MEÑO ([id number]), marketing editor LEE GIBSON ([id number]) on 02/10/2021 8:53:23 AM Referred By: TAYLOR Confirmed By:MEÑO WEBSTER MD
--- NOTE | 2021-02-08 18:50 | EX.ED.VIS.PS ---
HPI HPI - Psych History of Present Illness Chief Complaint: Mental Health Informant: patient Narrative Narrative: Patient wants to stop the voices. She has been hearing these for a long time. They do not tell her to hurt herself or others. However, it sounds like they are getting more annoying. She is starting to feel as though many people she needs are lying to her and trying to manipulate her. It is hard for her to be specific on this though. She does appear as though she is getting a little bit paranoid. However she has insight enough that she wants help. She does have history of drug use but says she has not used for a long time. She is currently homeless. She denies ever being on medications or ever being admitted for psychiatric reasons. PFSH PFS Medical History Anxiety Depression SVT (supraventricular tachycardia) Allergy/AdvReac Type Severity Reaction Status Date / Time brompheniramine maleate Allergy Hives/hyper Verified 02/08/21 18:01 [From Dimetapp activity (brompheniramine-PPA)] escitalopram oxalate Allergy Hives Verified 02/08/21 18:01 [From Lexapro] ketorolac tromethamine Allergy Hives/vomit Verified 02/08/21 18:01 [From Toradol] ing nalbuphine HCl [From Nubain] Allergy Vomiting/hi Verified 02/08/21 18:01 ves paroxetine HCl [From Paxil] Allergy Hives Verified 02/08/21 18:01 phenylpropanolamine HCl Allergy Hives Verified 02/08/21 18:01 [From Dimetapp (brompheniramine-PPA)] SLEEP AIDS Allergy Hives/hyper Uncoded 02/08/21 18:01 activity/lo ckjaw Family History Mother Hypertension Thyroid disorder Cancer multiple myeloma Father Heart disease Thyroid disorder Hypertension Surgical History delivery delivered H/O dilation and curettage H/O tubal ligation History of tonsillectomy and adenoidectomy Hx of cholecystectomy Social History Smoking Status: Current every day smoker tobacco type: cigarettes alcohol intake: never substance use type: does not use caffeine: Yes what type of physical activity do you participate in: walking seatbelt use: always do you feel safe at home: Yes additional social history: single- unemployed ROS ROS ED Constitutional Constitutional ED: Denies fever(s), subjective or sweats ENT ENT ED: Denies rhinorrhea or sore throat Cardiovascular Cardiovascular: Denies chest pain or palpitations Respiratory/Chest Respiratory/Chest: Denies cough or dyspnea Gastrointestinal Gastrointestinal: Denies nausea or vomiting Genitourinary Genitourinary ED: Denies dysuria Musculoskeletal Musculoskeletal: Denies myalgias Integumentary Reports rash and other Details: Skin changes on both feet after getting wet. She states they itch and hurt. They also have a strong odor. Neurologic Neurologic: Denies headache(s) Psychiatric Psychiatric: Reports other Details: See history of present illness. Endocrine Endocrinology: Denies polydipsia or polyuria Hematologic/Lymphatic Hematologic/Lymphatic: Denies easy bleeding or easy bruising EXAM Physical Exam Const Vital Signs: 02/08/21 17:58 02/08/21 22:29 Temperature 97.9 F Temperature Source Temporal Pulse Rate 98 77 Respiratory Rate 16 16 Blood Pressure 143/79 H 134/86 H Blood Pressure Mean 100 102 Pulse Ox 100 99 Oxygen Delivery Method Room Air Room Air Positive well nourished and well developed General Appearance ED: well developed and NAD HEENT normocephalic and atraumatic Eyes General Eye ED: Negative for pale conjunctiva or scleral icterus Neck no JVD Resp normal respiratory effort and clear to auscultation bilaterally Auscultation: Negative for rales, rhonchi or wheezes Cardio Rate: regular rate Rhythm: regular rhythm GI non-tender and non-distended Palpation: soft Back/Spine no CVA tenderness Neuro oriented x3 Sensorium / Orientation: alert Psych Psych Narrative: Awake alert and appropriate. She makes good eye contact. There is very subtle paranoia but is not significant. She appears to be taking care of herself. She is cooperative. She is consistent in her story. She is not suicidal or homicidal. Skin Skin Narrative: Patient does have a little bit of skin fissuring and odor in the crevices of toes mostly on the left foot. This is consistent with athlete's foot. MDM MDM MDM Narrative Medical decision making narrative: Patient CBC and electrolytes show no marked abnormalities. Drug screen is positive for amphetamines. She now admits to using amphetamines within the past week. is negative. Alcohol is only 4. Other people evidently contacted. Patient has been getting a bit more paranoid. She has made comments about cutting the next of people although she did not tell me this directly. I am concerned about her overall behavior. She is hearing voices with paranoia. It sounds like it is worsening. This could put her others at risk and I think she could benefit from treatment. She has been accepted in transfer. Lab Data Attestation: I reviewed the patient's lab results. Labs: Laboratory Results - last 24 hr 02/08/21 02/08/21 02/08/21 18:43 19:05 19:05 WBC 7.2 RBC 4.63 Hgb 13.6 Hct 41.7 MCV 90.1 MCH 29.4 MCHC 32.6 RDW Std Deviation 43.8 RDW Coeff of Nae 13.2 Plt Count 342 MPV 10.2 Immature Gran % (Auto) 0.100 Neut % (Auto) 58.2 Lymph % (Auto) 31.1 [place] % (Auto) 6.0 Eos % (Auto) 3.9 Baso % (Auto) 0.7 Absolute Neuts (auto) 4.2 Absolute Lymphs (auto) 2.23 Nucleated RBC % 0 Sodium 139 Potassium 4.0 Chloride 108 H Carbon Dioxide 29.0 Anion Gap 2 L BUN 6 L Creatinine 0.76 Estim Creat Clear Calc 84.65 Est GFR (MDRD) Af Amer 111 Est GFR (MDRD) Non-Af 91 BUN/Creatinine Ratio 7.9 L Glucose 111 H Calcium 8.9 Serum , Qual Urine Opiates Screen NEGATIVE Urine Methadone Screen NEGATIVE Ur Barbiturates Screen NEGATIVE Ur Phencyclidine Scrn NEGATIVE Ur Amphetamines Screen POSITIVE H U Methamphetamin-MDMA NEGATIVE U Benzodiazepines Scrn NEGATIVE Urine Cocaine Screen NEGATIVE U Cannabinoids Screen NEGATIVE Ur Drug Screen Comment Ethyl Alcohol 02/08/21 02/08/21 19:05 19:05 WBC RBC Hgb Hct MCV MCH MCHC RDW Std Deviation RDW Coeff of Nae Plt Count MPV Immature Gran % (Auto) Neut % (Auto) Lymph % (Auto) [place] % (Auto) Eos % (Auto) Baso % (Auto) Absolute Neuts (auto) Absolute Lymphs (auto) Nucleated RBC % Sodium Potassium Chloride Carbon Dioxide Anion Gap BUN Creatinine Estim Creat Clear Calc Est GFR (MDRD) Af Amer Est GFR (MDRD) Non-Af BUN/Creatinine Ratio Glucose Calcium Serum , Qual NEGATIVE Urine Opiates Screen Urine Methadone Screen Ur Barbiturates Screen Ur Phencyclidine Scrn Ur Amphetamines Screen U Methamphetamin-MDMA U Benzodiazepines Scrn Urine Cocaine Screen U Cannabinoids Screen Ur Drug Screen Comment Ethyl Alcohol 4.0 Discharge Plan Triage Chief Complaint: Mental Health ED Provider: Colby James Dx/Rx/DC Orders Clinical Impression: Hallucinations Primary Care Provider: Care Physician,No Primary Referrals: Care Physician,No Primary [Primary Care Provider] - Disposition Disposition: Psychiatric Hospital or Unit
[2021-02-08 19:20] LABS: Absolute Lymphocyte Count 2.23 X10^3/uL (0.83-4.51); Absolute Neutrophil Count 4.2 X10^3/uL (2.0-7.7); Basophil# 0.05 X10^3/uL; Basophil% 0.7 % (0-1); Eosinophil# 0.28 X10^3/uL; Eosinophils% 3.9 % (0-5); Hematocrit 41.7 % (37-47); Hemoglobin 13.6 g/dL (12.0-15.0); Lymphocyte # 2.23 X10^3/ul (0.83-4.51); Lymphocyte % 31.1 % (19-41); Mean Corp Hgb Conc 32.6 g/dL (32-36); Mean Corpuscular Hgb 29.4 pg (27.0-32.0); Mean Corpuscular Volume 90.1 fL (81-99); Mean Platelet Vol. 10.2 fl (6.2-12.0); Monocyte# 0.43 X10^3/uL; NRBC Flagged by Analyzer 0 % (0-5); Neutrophil # 4.18 X10^3/uL (2.7-7.7); Neutrophil % 58.2 % (47-70); Platelet Count 342 K/mm3 (150-450); RBC Distribution Width CV 13.2 % (11.6-14.6); RBC Distribution Width SD 43.8 fl (35.1-43.9); Red Blood Count 4.63 M/mm3 (4.2-5.4); White Blood Count 7.2 K/mm3 (4.4-11.0)
[2021-02-08 19:32] LABS: Anion Gap 2 (5-15); BUN 6 mg/dL (7-18); BUN/Creat Ratio 7.9 RATIO (10-20); Calcium,Total 8.9 mg/dL (8.5-10.1); Chloride 108 mmol/L (98-107); Creatinine, Serum 0.76 mg/dL (0.55-1.02); EST Glomerular Filtration Rate 91 mL/min (>60); Est Glom Filt Rate - Afr Amer 111 mL/min (>60); Estimated Creatinine Clearance 84.65 ml/min; Glucose 111 mg/dL (74-106); Sodium Level 139 mmol/L (136-145)
[2021-02-08 19:39] LABS: Internal QC Validated? YES +Cl - CLEAR BKGD; Pregnancy, Serum, hCG Quali. NEGATIVE Negative
[2021-02-08 19:52] LABS: Amphetamine Urine VISTA POSITIVE (<1000 ng/mL); Barbiturate Urine VISTA NEGATIVE (< 200 ng/mL); Benzodiazepine Urine VISTA NEGATIVE (< 200 ng/mL); Cocaine Urine VISTA NEGATIVE (< 300 ng/mL); Ecstacy Urine VISTA NEGATIVE (< 500 ng/mL); Methadone Urine VISTA NEGATIVE (< 300 ng/mL); PCP Urine VISTA NEGATIVE (< 25 ng/mL); THC Urine VISTA NEGATIVE (< 50 ng/mL); Vista UDS pH Range 5
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
[2021-02-08 22:29] VITALS: BP 134/86; PULSE 77; RESP 16; O2SAT 99
--- NOTE | 2021-02-08 22:42 | CM.ED ---
DEV called [facility]. No beds tonight but will look at referral tomorrow. DEV faxed referral to [facility]. DEV called [facility]. THey have one bed for Dual Diagnosis Unit. DEV faxed referral. piece maker and RN updated Kaity PALMER
--- NOTE | 2021-02-08 22:46 | CM.ED ---
DEV Note: DEV reviewed [facility] web site. No guardianship case located for patient Kaity Hazel LIZZIE PALMER
--- NOTE | 2021-02-08 23:15 | CM.ED ---
SW received call from Magy at [facility]. They can accept patient. Accepting MD is Bunny. Patient will be on the ICU female sign. RN to RN [phone]. RN notified. [facility] will schedule transport. No further SW services needed. Plan: [facility] Kaity PALMER
== END 2021-02-09 02:33 ==
PROVIDERS: Emergency Provider Emergency Medicine
DX: R44.0 Auditory hallucinations (principal); Z59.00 Homelessness unspecified; F17.210 Nicotine dependence, cigarettes, uncomplicated
CPT/HCPCS: 36415; 80048; 80307; 82077; 84703; 85025; 87426; 93005; 99285